=== PATIENT | female | born 1945 | race Caucasian/White ===

== ENCOUNTER 2018-06-16 08:20 | Emergency (ER) | payer MEDICARE, BC ==
[2018-06-16 08:33] VITALS: BP 134/86
[2018-06-16] MEDS ORDERED: Phenazopyridine 95 MG Tab PO ONE (08:44)
--- NOTE | 2018-06-16 08:44 | EDM.PDOC ---
ED HPI GENERAL MEDICAL PROBLEM - General Chief Complaint: Genitourinary Problem Stated Complaint: [id number] BLADDER INFECTION Time Seen by Provider: 06/16/18 08:35 Source of Information: Reports: Patient History Limitations: Reports: No Limitations - History of Present Illness INITIAL COMMENTS - FREE TEXT/NARRATIVE: Patient comes emergency department today with complaints of suprapubic pain pressure dysuria and urinary frequency. Over the past 3 days she has had increased urination as well as very painful urination with small amounts. She also complains of some generalized fever and chills but did not check her fever. Had some nausea yesterday but no vomiting. No flank pain. No weakness dizziness lightheadedness. She has had a good appetite. She did have one urinary tract infection earlier this year. He typically does not get them. She has not taken anything for her symptomology other than apple cider vinegar. Perineal Area Pain Score (Numeric/FACES): 10 - Related Data Allergies Allergy/AdvReac Type Severity Reaction Status Date / Time iopamidol [From Isovue-M] Allergy Mild Hives Verified 12/22/16 06:02 codeine Allergy unknown Verified 12/22/16 06:02 oxycodone Allergy unknown Verified 12/22/16 06:02 Home Meds: Home Meds Acetaminophen 1,000 mg PO Q6H PRN 12/19/16 [History] Aspirin/Calcium Carbonate/Mag [Aspirin Buffered 325 mg Tab] 325 mg PO BEDTIME [History] Calcium Carbonate [Tums] 1 - 2 tab PO ASDIRECTED PRN 12/19/16 [History] Calcium Carbonate/Vitamin D3 [Calcium 500 + Vit D 400] 1 tab PO BID 12/19/16 [ History] Cetirizine [ZyrTEC] 10 mg PO DAILY PRN 12/19/16 [History] Ergocalciferol (Vitamin D2) [Vitamin D] 400 unit PO DAILY 12/19/16 [History] Omeprazole 20 mg PO ASDIRECTED 12/19/16 [History] Pravastatin [Pravachol] 10 mg PO DAILY 12/19/16 [History] SUMAtriptan Succinate [Imitrex] 100 mg PO ASDIRECTED PRN 12/19/16 [History] Simethicone [Gas-X] 80 mg PO ASDIRECTED PRN 12/19/16 [History] Venlafaxine HCl [Venlafaxine ER] 150 mg PO ASDIRECTED 12/19/16 [History] Vitamin E 400 unit PO DAILY 12/19/16 [History] traZODone 50 mg PO BEDTIME PRN 12/19/16 [History] Past Medical History HEENT History: Reports: Hard of Hearing, Impaired Vision, Other (See Below) Other HEENT History: CHRONIC RHINITIS. 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: Musculoskeletal History: Reports: Osteoporosis, Other (See Below) Other Musculoskeletal History: DEGENERATIVE JOINT DISEASE Neurological History: Reports: Migraines, Other (See Below) Other Neuro History: INSOMNIA Psychiatric History: Reports: Anxiety, Depression Endocrine/Metabolic History: Reports: Osteoporosis Hematologic History: Reports: None Immunologic History: Reports: None Oncologic (Cancer) History: Reports: None Dermatologic History: Reports: None - Infectious Disease History Infectious Disease History: Reports: Chicken Pox, Measles, Mumps - Past Surgical History Female Surgical History: Reports: Breast Biopsy, Hysterectomy, Oophorectomy Neurological Surgical History: Reports: Lumbar Spine Musculoskeletal Surgical History: Reports: Arthroscopic Knee, Other (See Below) Social & Family History - Family History Oncologic: Reports: Breast - Caffeine Use Caffeine Use: Reports: None ED ROS GENERAL - Review of Systems Review Of Systems: ROS reveals no pertinent complaints other than HPI. ED EXAM, RENAL/ - Physical Exam Exam: See Below Exam Limited By: No Limitations General Appearance: Alert, WD/WN, No Apparent Distress Respiratory/Chest: No Respiratory Distress, Lungs Clear Cardiovascular: Normal Peripheral Pulses, Regular Rate, Rhythm GI/Abdominal: Normal Bowel Sounds, Soft, Tender (In the suprapubic region without guarding rebound tenderness. No CVA tenderness.) (Female) Exam: Deferred Back Exam: No: CVA Tenderness (L), CVA Tenderness (R) Extremities: Normal Inspection Neurological: Alert, Oriented Psychiatric: Normal Affect, Normal Mood Skin Exam: Warm, Dry, Intact, Normal Color Lymphatic: No Adenopathy Course - Vital Signs Last Recorded V/S: Last Vital Signs Temp 36.8 C 06/16/18 08:31 Pulse 75 06/16/18 08:31 Resp 16 06/16/18 08:31 BP 134/86 06/16/18 08:31 Pulse Ox 99 06/16/18 08:31 - Orders/Labs/Meds Orders: Active Orders 24 hr Category Date Time Status CULTURE URINE [RM] Stat Lab 06/16/18 08:55 Ordered Labs: Laboratory Tests 06/16/18 Range/Units 08:35 Urine Color Yellow (YELLOW) Urine Appearance Turbid (CLEAR) Urine pH 5.5 (5.0-9.0) Ur Specific [place] 1.015 (1.005-1.030) Urine Protein 100 H (NEGATIVE) Urine Glucose (UA) Negative (NEGATIVE) Urine Ketones Negative (NEGATIVE) Urine Occult Blood Moderate H (NEGATIVE) Urine Nitrite Negative (NEGATIVE) Urine Bilirubin Negative (NEGATIVE) Urine Urobilinogen 0.2 (0.2-1.0) mg/dL Ur Leukocyte Esterase Large H (NEGATIVE) Urine RBC 50-75 H /HPF Urine WBC >100 H (0-5/HPF) /HPF Ur Epithelial Cells Moderate H /HPF Amorphous Sediment Moderate H (0/HPF) /HPF Urine Bacteria Moderate H (0-FEW/HPF) /HPF Urine Mucus Few H /LPF Meds: Medications Discontinued Medications Generic Name Dose Route Start Last Admin Trade Name Freq PRN Reason Stop Dose Admin Cephalexin 500 mg 06/16/18 08:55 Keflex PO 06/16/18 08:56 ONETIME ONE Phenazopyridine HCl 95 mg 06/16/18 08:44 Urinary Pain Relief PO 06/16/18 08:45 ONETIME ONE - Re-Assessments/Exams Free Text/Narrative Re-Assessment/Exam: 06/16/18 08:48 Pyridium given by mouth. Cephalexin 500mg po 06/16/18 08:57 Departure - Departure Time of Disposition: 08:57 Disposition: Home, Self-Care 01 Clinical Impression: UTI, Urinary tract infectious disease - Discharge Information Instructions: Urinary Tract Infection, Adult Forms: ED Department Discharge Additional Instructions: Tylenol and/or ibuprofen as needed for pain and fever discomfort. Pyridium 1 tablet 3 times a day for 3 days. Cephalexin 1 tablet 4 times a day for the next 7 days. Prescriptions given to patient Increase fluid intake over the next couple of days. May try for the prevention of urinary tract infection Azo [id number]. Return to the emergency department if new or worsening symptoms. Follow-up with primary care provider the next 4-6 days if not improving sooner if worse.. - My Orders Last 24 Hours: My Active Orders 06/16/18 08:55 CULTURE URINE [RM] Stat - Assessment/Plan Last 24 Hours: My Active Orders 06/16/18 08:55 CULTURE URINE [RM] Stat Assessment:: UTI Plan: Tylenol and/or ibuprofen as needed for pain and fever discomfort. Pyridium 1 tablet 3 times a day for 3 days. Cephalexin 1 tablet 4 times a day for the next 7 days. Prescriptions given to patient Increase fluid intake over the next couple of days. May try for the prevention of urinary tract infection Azo [id number]. Return to the emergency department if new or worsening symptoms. Follow-up with primary care provider the next 4-6 days if not improving sooner if worse..
[2018-06-16] MEDS ORDERED: Cephalexin 500 MG Cap PO ONE (08:55)
== END 2018-06-16 09:09 | disposition home or self-care (01) ==
LOC: DL.ED 08:20
DX: N39.0 Urinary tract infection, site not specified (principal); Z88.5 Allergy status to narcotic agent; Z88.8 Allergy status to other drugs, medicaments and biological substances; Z79.899 Other long term (current) drug therapy
CPT/HCPCS: 81001; 87086; 87088; 87186; 99284; A9270

== ENCOUNTER 2019-05-04 19:11 | Emergency (ER) | payer MEDICARE, BC ==
[2019-05-04] MEDS ORDERED: Cyclobenzaprine 10 MG Tab PO ONE (19:12)
[2019-05-04 19:29] VITALS: BP 120/57
[2019-05-04] MEDS ORDERED: methylPREDNISolone Sodium Succinate 125 MG/2 ML SDV IM ONE (19:33)
--- NOTE | 2019-05-04 19:41 | EDM.PDOC ---
ED HPI GENERAL MEDICAL PROBLEM - General Chief Complaint: Back Pain or Injury Stated Complaint: BACK PAIN [id number] Time Seen by Provider: 05/04/19 19:28 Source of Information: Reports: Patient History Limitations: Reports: No Limitations - History of Present Illness INITIAL COMMENTS - FREE TEXT/NARRATIVE: This 73 yo female patient reports to the ED with lower back pain radiating to the right hip and thigh, but also radiating to the left hip. The patient reports her pain started about 2 weeks ago, but got much worse last night. The patient reports she does have a history of back surgery and has rods placed. The patient denies any falls or known injuries. The patient reports she took a Flexeril (10 mg) this morning with no relief. The patient also reports she attempted to do stretching exercises today. The patient reports she could do the exercises, but had increased pain getting down to do the exercises as well as getting up from doing the exercises. Duration: Day(s):, Week(s):, Constant, Getting Worse Location: Reports: Back Quality: Reports: Ache, Throbbing Severity: Severe Improves with: Reports: None Worsens with: Reports: None Context: Reports: Other Right Lower Back Pain Score (Numeric/FACES): 10 - Related Data Allergies Allergy/AdvReac Type Severity Reaction Status Date / Time iopamidol [From Isovue-M] Allergy Mild Hives Verified 12/22/16 06:02 codeine Allergy unknown Verified 05/04/19 19:19 oxycodone Allergy Anaphylactic Verified 05/04/19 19:19 Shock Home Meds: Home Meds Acetaminophen 1,000 mg PO Q6H PRN 12/19/16 [History] Calcium Carbonate [Tums] 1 - 2 tab PO ASDIRECTED PRN 12/19/16 [History] Calcium Carbonate/Vitamin D3 [Calcium 500 + Vit D 400] 1 tab PO BID 12/19/16 [ History] Cetirizine [ZyrTEC] 10 mg PO DAILY PRN 12/19/16 [History] Ergocalciferol (Vitamin D2) [Vitamin D] 400 unit PO DAILY 12/19/16 [History] Omeprazole 20 mg PO ASDIRECTED 12/19/16 [History] Pravastatin [Pravachol] 10 mg PO DAILY 12/19/16 [History] SUMAtriptan Succinate [Imitrex] 100 mg PO ASDIRECTED PRN 12/19/16 [History] Simethicone [Gas-X] 80 mg PO ASDIRECTED PRN 12/19/16 [History] Venlafaxine HCl [Venlafaxine ER] 150 mg PO ASDIRECTED 12/19/16 [History] Vitamin E 400 unit PO DAILY 12/19/16 [History] traZODone 50 mg PO BEDTIME PRN 12/19/16 [History] Aspirin [Halfprin] 81 mg PO DAILY 05/04/19 [History] Propranolol HCl 40 mg PO ASDIRECTED 05/04/19 [History] Past Medical History HEENT History: Reports: Hard of Hearing, Impaired Vision, Other (See Below) Other HEENT History: CHRONIC RHINITIS. 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: Musculoskeletal History: Reports: Osteoporosis, Other (See Below) Other Musculoskeletal History: DEGENERATIVE JOINT DISEASE Neurological History: Reports: Migraines, Other (See Below) Other Neuro History: INSOMNIA Psychiatric History: Reports: Anxiety, Depression Endocrine/Metabolic History: Reports: Osteoporosis Hematologic History: Reports: None Immunologic History: Reports: None Oncologic (Cancer) History: Reports: None Dermatologic History: Reports: None - Infectious Disease History Infectious Disease History: Reports: Chicken Pox, Measles, Mumps - Past Surgical History Female Surgical History: Reports: Breast Biopsy, Hysterectomy, Oophorectomy Neurological Surgical History: Reports: Lumbar Spine Musculoskeletal Surgical History: Reports: Arthroscopic Knee, Other (See Below) Social & Family History - Family History Oncologic: Reports: Breast - Caffeine Use Caffeine Use: Reports: None ED ROS GENERAL - Review of Systems Review Of Systems: ROS reveals no pertinent complaints other than HPI. ED EXAM,LOWER BACK PAIN/INJURY - Physical Exam Exam: See Below Exam Limited By: No Limitations General Appearance: Alert, WD/WN, Moderate Distress, Thin Eye Exam: Bilateral Eye: EOMI, Normal Inspection, PERRL Ears: Normal External Exam, Normal Canal, Hearing Grossly Normal, Normal TMs Nose: Normal Inspection, Normal Mucosa, No Blood Throat/Mouth: Normal Inspection, Normal Lips, Normal Teeth, Normal Gums, Normal Oropharynx, Normal Voice, No Airway Compromise Head: Atraumatic, Normocephalic Neck: Normal Inspection, Supple, Non-Tender, Full Range of Motion Respiratory/Chest: No Respiratory Distress, Lungs Clear, Normal Breath Sounds, No Accessory Muscle Use, Chest Non-Tender Cardiovascular: Normal Peripheral Pulses, Regular Rate, Rhythm, No Edema, No Gallop, No JVD, No Murmur, No Rub GI/Abdominal: Normal Bowel Sounds, Soft, Non-Tender, No Organomegaly, No Distention, No Abnormal Bruit, No Mass (Female) Exam: Deferred Rectal (Female) Exam: Deferred Back Exam: Decreased Range of Motion (due to pain), Muscle Spasm, Paraspinal Tenderness Extremities: Normal Inspection, Non-Tender, No Pedal Edema, Normal Capillary Refill, Limited Range of Motion (due to lower back pain) Neurological: Alert, Normal Mood/Affect, Normal Dorsiflexion, CN II-XII Intact, Normal Plantar Flexion, Normal Gait, Normal Reflexes, No Motor/Sensory Deficits , Oriented x 3 Psychiatric: Normal Affect, Normal Mood Skin Exam: Warm, Dry, Intact, Normal Color, No Rash Lymphatic: No Adenopathy Course - Vital Signs Last Recorded V/S: Last Vital Signs Temp 36.5 C 05/04/19 19:28 Pulse 59 L 05/04/19 19:28 Resp 18 05/04/19 19:28 BP 120/57 L 05/04/19 19:28 Pulse Ox 95 05/04/19 19:28 - Orders/Labs/Meds Orders: Active Orders 24 hr Category Date Time Status Orphenadrine [Norflex] Med 05/04/19 19:45 Ordered 60 mg IM Q12H Medication Orders Orphenadrine Citrate (Norflex) 60 mg IM Q12H [facility] Meds: Medications Generic Name Dose Route Start Last Admin Trade Name Freq PRN Reason Stop Dose Admin Orphenadrine Citrate 60 mg 05/04/19 19:45 Norflex IM Q12H JOSEY Discontinued Medications Generic Name Dose Route Start Last Admin Trade Name Freq PRN Reason Stop Dose Admin Methylprednisolone Sodium Succinate 125 mg 05/04/19 19:33 Solu-Medrol IM 05/04/19 19:34 ONETIME ONE Departure - Departure Time of Disposition: 19:40 Disposition: Home, Self-Care 01 Condition: Fair Clinical Impression: Sciatica Qualifiers: Laterality: bilateral Qualified Code(s): M54.31 - Sciatica, right side; M54.32 - Sciatica, left side - Discharge Information *PRESCRIPTION DRUG MONITORING PROGRAM REVIEWED*: Not Applicable *COPY OF PRESCRIPTION DRUG MONITORING REPORT IN PATIENT MAZIN: Not Applicable Instructions: Sciatica, [id number] Care Plan Goals: The patient was advised of the examination results during the visit. The patient was given an injection of Solumedrol (steroid) and Norflex (muscle relaxer) while in the ED. The patient was discharged with Flexeril (10 mg) #2 to take one every 6 hours as needed. The patient was discharged with scripts for Prednisone (20 mg) #10 to take 2 by mouth daily for 5 days and Flexeril (10 mg) #20 to take 1 by mouth every 6 hours as needed for pain. The patient may take Tylenol as directed for temporary symptom relief. If the patient has any additional symptoms or concerns, the patient should either return to the emergency department or visit his primary care facility. - My Orders Last 24 Hours: My Active Orders 05/04/19 19:45 Orphenadrine [Norflex] 60 mg IM Q12H - Assessment/Plan Last 24 Hours: My Active Orders 05/04/19 19:45 Orphenadrine [Norflex] 60 mg IM Q12H
[2019-05-04] MEDS ORDERED: Cyclobenzaprine 10 MG Tab ONE (19:45)
== END 2019-05-04 20:01 | disposition home or self-care (01) ==
LOC: DL.ED 19:11
DX: M54.31 Sciatica, right side (principal); M54.32 Sciatica, left side; F41.9 Anxiety disorder, unspecified; F32.9 Major depressive disorder, single episode, unspecified; E78.00 Pure hypercholesterolemia, unspecified; Z79.899 Other long term (current) drug therapy; Z88.6 Allergy status to analgesic agent; Z88.8 Allergy status to other drugs, medicaments and biological substances
CPT/HCPCS: 96372; 99282; A9270; J2360; J2930

== ENCOUNTER 2020-01-25 01:59 | Emergency (ER) | payer MEDICARE, BC ==
[2020-01-25 02:20] VITALS: BP 165/85; PULSE 95
--- NOTE | 2020-01-25 03:07 | EDM.PDOC ---
ED HPI GENERAL MEDICAL PROBLEM - General Chief Complaint: Headache Stated Complaint: MIGRAINE Time Seen by Provider: 01/25/20 02:55 Source of Information: Reports: Patient, RN, RN Notes Reviewed History Limitations: Reports: No Limitations - History of Present Illness INITIAL COMMENTS - FREE TEXT/NARRATIVE: patient presents to ER with complaint of migraine headache, which she rates pain of 10/10. patient states she has a history of headaches, but they have been getting worse recently. Patient states she had Botox injections 3 weeks ago by her neurologist in [place] [employer]. Patient states she had some pressure around the right eye earlier, and now has a bloodshot eye on the right. Patient admits to sensitivity to light and sound, nausea. 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 Headache Pain Score (Numeric/FACES): 10 - Related Data Allergies Allergy/AdvReac Type Severity Reaction Status Date / Time iopamidol [From Isovue-M] Allergy Mild Hives Verified 01/25/20 03:24 codeine Allergy unknown Verified 01/25/20 03:24 oxycodone Allergy Anaphylactic Verified 01/25/20 03:24 Shock Home Meds: Home Meds Acetaminophen 1,000 mg PO Q6H PRN 12/19/16 [History] Calcium Carbonate [Tums] 1 - 2 tab PO ASDIRECTED PRN 12/19/16 [History] Calcium Carbonate/Vitamin D3 [Calcium 500 + Vit D 400] 1 tab PO BID 12/19/16 [ History] Cetirizine [ZyrTEC] 10 mg PO DAILY PRN 12/19/16 [History] Ergocalciferol (Vitamin D2) [Vitamin D] 400 unit PO DAILY 12/19/16 [History] Omeprazole 20 mg PO ASDIRECTED 12/19/16 [History] Pravastatin [Pravachol] 10 mg PO DAILY 12/19/16 [History] SUMAtriptan Succinate [Imitrex] 100 mg PO ASDIRECTED PRN 12/19/16 [History] Simethicone [Gas-X] 80 mg PO ASDIRECTED PRN 12/19/16 [History] Venlafaxine HCl [Venlafaxine ER] 150 mg PO ASDIRECTED 12/19/16 [History] Vitamin E 400 unit PO DAILY 12/19/16 [History] traZODone 50 mg PO BEDTIME PRN 12/19/16 [History] Aspirin [Halfprin] 81 mg PO DAILY 05/04/19 [History] Propranolol HCl 40 mg PO ASDIRECTED 05/04/19 [History] Past Medical History HEENT History: Reports: Hard of Hearing, Impaired Vision, Other (See Below) Other HEENT History: CHRONIC RHINITIS. 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: Musculoskeletal History: Reports: Osteoporosis, Other (See Below) Other Musculoskeletal History: DEGENERATIVE JOINT DISEASE Neurological History: Reports: Migraines, Other (See Below) Other Neuro History: INSOMNIA Psychiatric History: Reports: Anxiety, Depression Endocrine/Metabolic History: Reports: Osteoporosis Hematologic History: Reports: None Immunologic History: Reports: None Oncologic (Cancer) History: Reports: None Dermatologic History: Reports: None - Infectious Disease History Infectious Disease History: Reports: Chicken Pox, Measles, Mumps - Past Surgical History Female Surgical History: Reports: Breast Biopsy, Hysterectomy, Oophorectomy Neurological Surgical History: Reports: Lumbar Spine Musculoskeletal Surgical History: Reports: Arthroscopic Knee, Other (See Below) Social & Family History - Family History Family Medical History: Noncontributory Oncologic: Reports: Breast - Tobacco Use Smoking Status *Q: Never Smoker Second Hand Smoke Exposure: No - Caffeine Use Caffeine Use: Reports: Coffee - Alcohol Use Date of Last Drink: 01/24/20 - Recreational Drug Use Recreational Drug Use: No ED ROS GENERAL - Review of Systems Review Of Systems: Comprehensive ROS is negative, except as noted in HPI. - Physical Exam Exam: See Below Exam Limited By: No Limitations General Appearance: Alert, WD/WN, Moderate Distress Eye Exam: Right Eye: Conjunctival Injection, Left Eye: Normal Inspection, Bilateral Eye: EOMI Ears: Normal External Exam, Hearing Grossly Normal Nose: Normal Inspection Throat/Mouth: Normal Inspection, Normal Voice, No Airway Compromise Head Exam: Atraumatic, Normocephalic Neck: Normal Inspection, Supple, Non-Tender, Full Range of Motion Respiratory/Chest: No Respiratory Distress, Lungs Clear, Normal Breath Sounds, No Accessory Muscle Use, Chest Non-Tender Cardiovascular: Normal Peripheral Pulses, Regular Rate, Rhythm, No Edema, No Gallop, No JVD, No Murmur, No Rub GI/Abdominal: Normal Bowel Sounds, Soft, Non-Tender (Female) Exam: Deferred Rectal (Female) Exam: Deferred Neuro Exam (Abbreviated): Alert, Oriented, CN II-XII Intact, Normal Cognition, Normal Gait Back Exam: Normal Inspection, Full Range of Motion Extremities: Normal Inspection, Normal Range of Motion, Non-Tender, No Pedal Edema, Normal Capillary Refill Psychiatric: Normal Mood, Flat Affect Skin Exam: Warm, Dry, Intact, Normal Color, No Rash Course - Vital Signs Last Recorded V/S: Last Vital Signs Temp 97.5 F 01/25/20 02:17 Pulse 95 01/25/20 02:17 Resp 19 01/25/20 02:17 BP 165/85 H 01/25/20 02:17 Pulse Ox 95 01/25/20 02:17 - Orders/Labs/Meds Orders: Active Orders 24 hr Category Date Time Status Peripheral IV Care [RC] . DIRECTED Care 01/25/20 03:10 Active Sodium Chloride 0.9% [Saline Flush] Med 01/25/20 03:10 Active 10 ml FLUSH ASDIRECTED PRN Peripheral IV Insertion Adult [OM.PC] Stat Oth 01/25/20 03:10 Ordered Medication Orders Sodium Chloride (Saline Flush) 10 ml FLUSH ASDIRECTED PRN PRN Reason: Keep Vein Open Last Admin: 01/25/20 03:25 Dose: 10 ml Meds: Medications Generic Name Dose Route Start Last Admin Trade Name Freq PRN Reason Stop Dose Admin Sodium Chloride 10 ml 01/25/20 03:10 01/25/20 03:25 Saline Flush FLUSH 10 ml ASDIRECTED PRN Administration Keep Vein Open Discontinued Medications Generic Name Dose Route Start Last Admin Trade Name Freq PRN Reason Stop Dose Admin Diphenhydramine HCl 25 mg 01/25/20 03:10 01/25/20 03:26 Benadryl IVPUSH 01/25/20 03:11 25 mg ONETIME ONE Administration Sodium Chloride 1,000 mls @ 999 mls/hr 01/25/20 03:10 01/25/20 03:30 Normal Saline IV 01/25/20 04:10 999 mls/hr .BOLUS ONE Administration Ketorolac Tromethamine 30 mg 01/25/20 03:10 01/25/20 03:28 Toradol IVPUSH 01/25/20 03:11 30 mg ONETIME ONE Administration Ondansetron HCl 4 mg 01/25/20 03:10 01/25/20 03:24 Zofran IV 01/25/20 03:11 4 mg ONETIME ONE Administration - Re-Assessments/Exams Free Text/Narrative Re-Assessment/Exam: 01/25/20 04:36 Patient states much improvement after fluids and medications. Departure - Departure Time of Disposition: 04:36 Disposition: Home, Self-Care 01 Condition: Fair Clinical Impression: Migraine - Discharge Information *PRESCRIPTION DRUG MONITORING PROGRAM REVIEWED*: No *COPY OF PRESCRIPTION DRUG MONITORING REPORT IN PATIENT MAZIN: No Instructions: Recurrent Migraine Headache, [id number] Forms: ED Department Discharge Additional Instructions: Follow up with your primary care facility and your Neurologist if symptoms persist Drink plenty of water Continue to use medication regimen for headaches as previously prescribed Sepsis Event Note - Evaluation Sepsis Screening Result: No Definite Risk - Focused Exam Vital Signs: Vital Signs Temp Pulse Resp BP Pulse Ox 01/25/20 02:17 97.5 F 95 19 165/85 H 95 Date Exam was Performed: 01/25/20 Time Exam was Performed: 04:36 - My Orders Last 24 Hours: My Active Orders 01/25/20 03:10 Peripheral IV Care [RC] . DIRECTED Sodium Chloride 0.9% [Saline Flush] 10 ml FLUSH ASDIRECTED PRN Peripheral IV Insertion Adult [OM.PC] Stat - Assessment/Plan Last 24 Hours: My Active Orders 01/25/20 03:10 Peripheral IV Care [RC] . DIRECTED Sodium Chloride 0.9% [Saline Flush] 10 ml FLUSH ASDIRECTED PRN Peripheral IV Insertion Adult [OM.PC] Stat
[2020-01-25] MEDS ORDERED: Ketorolac 30 MG/ML SDV IVPUSH ONE (03:10)
[2020-01-25] MEDS ORDERED: Sodium Chloride 0.9% 10 ML Syringe FLUSH PRN (03:10)
[2020-01-25] MEDS ORDERED: Ondansetron 4 MG/2 ML SDV IV ONE (03:10)
[2020-01-25] MEDS ORDERED: Sodium Chloride 0.9% 1,000 ML IV ONE (03:10)
[2020-01-25] MEDS ORDERED: diphenhydrAMINE 50 MG/ML SDV IVPUSH ONE (03:10)
== END 2020-01-25 04:50 | disposition home or self-care (01) ==
LOC: DL.ED 01:59
DX: G43.909 Migraine, unspecified, not intractable, without status migrainosus (principal); Z88.5 Allergy status to narcotic agent; Z88.8 Allergy status to other drugs, medicaments and biological substances; Z79.899 Other long term (current) drug therapy; Z79.82 Long term (current) use of aspirin
CPT/HCPCS: 96361; 96374; 96375; 99283; J1200; J1885; J2405; J7030

== ENCOUNTER 2020-11-19 15:47 | Emergency (ER) | payer MEDICARE, BC ==
[2020-11-19 15:57] VITALS: BP 140/77; PULSE 108
--- NOTE | 2020-11-19 16:06 | EDM.PDOC ---
ED HPI GENERAL MEDICAL PROBLEM - General Chief Complaint: Upper Extremity Injury/Pain Stated Complaint: MIGHT HAVE BROKEN RIGHT WRIST Time Seen by Provider: 11/19/20 16:05 Source of Information: Reports: Patient, RN History Limitations: Reports: No Limitations - History of Present Illness INITIAL COMMENTS - FREE TEXT/NARRATIVE: 75 year-old female who present to the ER with complaints of fall and landing on her right side. She states she was climbing the stairs carrying gifts and slipped on the third stairs. She landed on her right side and hit her right wrist on the stairs. She denies hitting her head or loss of consciousness. Pain is reported on the right wrist and she was unable to use her right wrist afterwards. Neurovascular status intact. Denies any other concerns at this time. Onset: Today (20 minutes prior to ER visit), Sudden Location: Reports: Upper Extremity, Right Quality: Reports: Ache, Throbbing Severity: Moderate Improves with: Reports: Cold Therapy, Rest Worsens with: Reports: Movement Associated Symptoms: Reports: No Other Symptoms Right Arm Pain Score (Numeric/FACES): 10 - Related Data Allergies Allergy/AdvReac Type Severity Reaction Status Date / Time iopamidol [From Isovue-M] Allergy Mild Hives Verified 11/19/20 15:53 codeine Allergy unknown Verified 11/19/20 15:53 oxycodone Allergy Anaphylactic Verified 11/19/20 15:53 Shock Home Meds: Home Meds Acetaminophen 1,000 mg PO Q6H PRN 12/19/16 [History] Calcium Carbonate [Tums] 1 - 2 tab PO ASDIRECTED PRN 12/19/16 [History] Calcium Carbonate/Vitamin D3 [Calcium 500 + Vit D 400] 1 tab PO BID 12/19/16 [History] Cetirizine [ZyrTEC] 10 mg PO DAILY PRN 12/19/16 [History] Ergocalciferol (Vitamin D2) [Vitamin D] 400 unit PO DAILY 12/19/16 [History] Omeprazole 20 mg PO ASDIRECTED 12/19/16 [History] Pravastatin [Pravachol] 10 mg PO DAILY 12/19/16 [History] SUMAtriptan succinate [Imitrex] 100 mg PO ASDIRECTED PRN 12/19/16 [History] Simethicone [Gas-X] 80 mg PO ASDIRECTED PRN 12/19/16 [History] Venlafaxine HCl [Venlafaxine ER] 150 mg PO ASDIRECTED 12/19/16 [History] Vitamin E 400 unit PO DAILY 12/19/16 [History] traZODone 50 mg PO BEDTIME PRN 12/19/16 [History] Aspirin [Halfprin] 81 mg PO DAILY 05/04/19 [History] Propranolol HCl 40 mg PO ASDIRECTED 05/04/19 [History] Past Medical History HEENT History: Reports: Hard of Hearing, Impaired Vision, Other (See Below) Other HEENT History: CHRONIC RHINITIS. 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: Musculoskeletal History: Reports: Osteoporosis, Other (See Below) Other Musculoskeletal History: DEGENERATIVE JOINT DISEASE Neurological History: Reports: Migraines, Other (See Below) Other Neuro History: INSOMNIA Psychiatric History: Reports: Anxiety, Depression Endocrine/Metabolic History: Reports: Osteoporosis Hematologic History: Reports: None Immunologic History: Reports: None Oncologic (Cancer) History: Reports: None Dermatologic History: Reports: None - Infectious Disease History Infectious Disease History: Reports: Chicken Pox, Measles, Mumps - Past Surgical History Female Surgical History: Reports: Breast Biopsy, Hysterectomy, Oophorectomy Neurological Surgical History: Reports: Lumbar Spine Musculoskeletal Surgical History: Reports: Arthroscopic Knee, Other (See Below) Social & Family History - Family History Family Medical History: No Pertinent Family History Oncologic: Reports: Breast - Caffeine Use Caffeine Use: Reports: Coffee Review of Systems - Review of Systems Review Of Systems: Comprehensive ROS is negative, except as noted in HPI. ED EXAM, GENERAL - Physical Exam Exam: See Below Exam Limited By: No Limitations General Appearance: Alert, Moderate Distress Eye Exam: Bilateral Eye: EOMI, Normal Inspection, PERRL Ears: Normal External Exam, Normal Canal, Hearing Grossly Normal, Normal TMs Nose: Normal Inspection, Normal Mucosa, No Blood Throat/Mouth: Normal Inspection, Normal Lips, Normal Gums, Normal Oropharynx, Normal Voice, No Airway Compromise Head: Atraumatic, Normocephalic Neck: Normal Inspection, Supple, Non-Tender, Full Range of Motion Respiratory/Chest: No Respiratory Distress, Lungs Clear, Normal Breath Sounds, No Accessory Muscle Use, Chest Non-Tender Cardiovascular: Normal Peripheral Pulses, Regular Rate, Rhythm, No Edema Peripheral Pulses: 3+: Dorsalis Pedis (L), Dorsalis Pedis (R) GI/Abdominal: Normal Bowel Sounds, Soft, Non-Tender, No Organomegaly (Female) Exam: Deferred Rectal (Female) Exam: Deferred Back Exam: Normal Inspection Extremities: Normal Inspection, Normal Range of Motion, Non-Tender, No Pedal Edema, Normal Capillary Refill, Joint Swelling (and deformity noted on the dorsal aspect of the right wrist.), Limited Range of Motion (due to pain) Neurological: Alert, Oriented, CN II-XII Intact, Normal Cognition Psychiatric: Anxious Skin Exam: Warm, Intact Lymphatic: No Adenopathy Course - Vital Signs Last Recorded V/S: Last Vital Signs Temp 96.4 F L 11/19/20 15:53 Pulse 108 H 11/19/20 15:53 Resp 18 11/19/20 15:53 BP 140/77 11/19/20 15:53 Pulse Ox 96 11/19/20 15:53 - Re-Assessments/Exams Free Text/Narrative Re-Assessment/Exam: 75 year-old female who present to the ER with right wrist pain. Xray revealed an impacted fracture of the distal radius. Consulted at [facility] once who recommended dave bang with reduction. Patient will follow up with Dr. Duncan November 24, 2020. Patient in agreement to plan. Sugar tong applied. Patient tolerated procedure. Departure - Departure Time of Disposition: 17:36 Disposition: Home, Self-Care 01 Condition: Fair Clinical Impression: Closed fracture of radius Qualifiers: Encounter type: initial encounter Radius location: distal Fracture morphology: unspecified fracture morphology Laterality: right Qualified Code(s): S52.501A - Unspecified fracture of the lower end of right radius, initial encounter for closed fracture Fall Qualifiers: Encounter type: initial encounter Qualified Code(s): W19.XXXA - Unspecified fall, initial encounter - Discharge Information Instructions: Closed Reduction for Wrist or Forearm, Care After Additional Instructions: Encouraged applying ice 20 minutes every hours while awake. Take Tylenol 650 mg every 6 hours as needed for pain. Follow up with Dr. Duncan as scheduled. Sepsis Event Note (ED) - Evaluation Sepsis Screening Result: No Definite Risk - Focused Exam Vital Signs: Vital Signs Temp Pulse Resp BP Pulse Ox 11/19/20 15:53 96.4 F L 108 H 18 140/77 96
--- NOTE | 2020-11-19 16:17 | CR ---
PROCEDURE INFORMATION: Exam: XR Right Forearm Exam date and time: 11/19/2020 4:06 PM Age: 75 years old Clinical indication: Other: Fall/deformity TECHNIQUE: Imaging protocol: XR Right forearm. Views: 2 views. COMPARISON: No relevant prior studies available. FINDINGS: Bones/joints: Impacted fracture of the distal radius with overlying soft tissue swelling. Slight apex volar angulation of the fracture fragments present. Soft tissues: See "Bones/joints" finding. IMPRESSION: Impacted fracture of the distal radius with overlying soft tissue swelling.
--- NOTE | 2020-11-19 17:45 | CR ---
PROCEDURE INFORMATION: Exam: XR Right Wrist Exam date and time: 11/19/2020 5:10 PM Age: 75 years old Clinical indication: Other: Post red; Additional info: Post reduction TECHNIQUE: Imaging protocol: XR Right wrist. Views: 1 or 2 views. COMPARISON: No relevant prior studies available. FINDINGS: Bones/joints: Comminuted intra-articular fracture of the distal radius is present with apex volar angulation. There is chondrocalcinosis. Degenerative changes of the wrist. Soft tissues: Soft tissue swelling is present. IMPRESSION: 1. Comminuted intra-articular fracture of the distal radius is present with apex volar angulation. 2. Soft tissue swelling is present. 3. Degenerative changes of the wrist.
== END 2020-11-19 17:48 | disposition home or self-care (01) ==
LOC: DL.ED 15:47
DX: S52.571A Other intraarticular fracture of lower end of right radius, initial encounter for closed fracture (principal); E78.00 Pure hypercholesterolemia, unspecified; F41.9 Anxiety disorder, unspecified; F32.9 Major depressive disorder, single episode, unspecified; Z79.899 Other long term (current) drug therapy; Z88.5 Allergy status to narcotic agent; Z88.8 Allergy status to other drugs, medicaments and biological substances; W10.9XXA Fall (on) (from) unspecified stairs and steps, initial encounter
CPT/HCPCS: 29125; 73090-RT; 73100-RT; 99283-25

== ENCOUNTER 2020-11-21 09:09 | Emergency (ER) | payer MEDICARE, BC | END 2020-11-21 09:32 | LOC: DL.ED 09:09 | DX: Z53.8 Procedure and treatment not carried out for other reasons (principal) ==

== ENCOUNTER 2020-12-02 22:58 | Emergency (ER) | payer MEDICARE, BC ==
[2020-12-02] MEDS ORDERED: Metoclopramide 10 MG Tab PO ONE (22:59)
[2020-12-02] MEDS ORDERED: Sodium Chloride 0.9% 1,000 ML IV ONE (23:07)
[2020-12-02] MEDS ORDERED: Ondansetron 4 MG/2 ML SDV IVPUSH ONE (23:25)
--- NOTE | 2020-12-02 23:35 | EDM.PDOC ---
ED HPI GENERAL MEDICAL PROBLEM - General Chief Complaint: Gastrointestinal Problem Stated Complaint: VOMITING Time Seen by Provider: 12/02/20 23:30 Source of Information: Reports: Patient, RN History Limitations: Reports: No Limitations - History of Present Illness INITIAL COMMENTS - FREE TEXT/NARRATIVE: ED with c/o severe nausea and vomiting since 2 pm today. Suregery today on right wrist. Nauseated prior to leaving [place]. [place] after. Unable to keep anything down, feeling weak tonight. Unsure what medications she received in [place]. Tried Zofran around 2 today and did not help. No fever chills or cough. No nausea or symptoms prior to surgery. - Related Data Allergies Allergy/AdvReac Type Severity Reaction Status Date / Time iopamidol [From Isovue-M] Allergy Mild Hives Verified 11/19/20 15:53 codeine Allergy unknown Verified 11/19/20 15:53 oxycodone Allergy Anaphylactic Verified 11/19/20 15:53 Shock Home Meds: Home Meds Acetaminophen 1,000 mg PO Q6H PRN 12/19/16 [History] Calcium Carbonate [Tums] 1 - 2 tab PO ASDIRECTED PRN 12/19/16 [History] Calcium Carbonate/Vitamin D3 [Calcium 500 + Vit D 400] 1 tab PO BID 12/19/16 [History] Cetirizine [ZyrTEC] 10 mg PO DAILY PRN 12/19/16 [History] Ergocalciferol (Vitamin D2) [Vitamin D] 400 unit PO DAILY 12/19/16 [History] Omeprazole 20 mg PO ASDIRECTED 12/19/16 [History] Pravastatin [Pravachol] 10 mg PO DAILY 12/19/16 [History] SUMAtriptan succinate [Imitrex] 100 mg PO ASDIRECTED PRN 12/19/16 [History] Simethicone [Gas-X] 80 mg PO ASDIRECTED PRN 12/19/16 [History] Venlafaxine HCl [Venlafaxine ER] 150 mg PO ASDIRECTED 12/19/16 [History] Vitamin E 400 unit PO DAILY 12/19/16 [History] traZODone 50 mg PO BEDTIME PRN 12/19/16 [History] Aspirin [Halfprin] 81 mg PO DAILY 05/04/19 [History] Propranolol HCl 40 mg PO ASDIRECTED 05/04/19 [History] Past Medical History HEENT History: Reports: Hard of Hearing, Impaired Vision, Other (See Below) Other HEENT History: CHRONIC RHINITIS. 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: Musculoskeletal History: Reports: Osteoporosis, Other (See Below) Other Musculoskeletal History: DEGENERATIVE JOINT DISEASE Neurological History: Reports: Migraines, Other (See Below) Other Neuro History: INSOMNIA Psychiatric History: Reports: Anxiety, Depression Endocrine/Metabolic History: Reports: Osteoporosis Hematologic History: Reports: None Immunologic History: Reports: None Oncologic (Cancer) History: Reports: None Dermatologic History: Reports: None - Infectious Disease History Infectious Disease History: Reports: Chicken Pox, Measles, Mumps - Past Surgical History HEENT Surgical History: Reports: None Cardiovascular Surgical History: Reports: None Respiratory Surgical History: Reports: None GI Surgical History: Reports: Colonoscopy, EGD Female Surgical History: Reports: Breast Biopsy, Hysterectomy, Oophorectomy Neurological Surgical History: Reports: Lumbar Spine Musculoskeletal Surgical History: Reports: Arthroscopic Knee, Other (See Below) Other Musculoskeletal Surgeries/Procedures:: Four back surgeries Oncologic Surgical History: Reports: None Social & Family History - Family History Family Medical History: No Pertinent Family History Oncologic: Reports: Breast - Tobacco Use Tobacco Use Status *Q: Unknown Ever Used Tobacco Second Hand Smoke Exposure: No - Caffeine Use Caffeine Use: Reports: None - Recreational Drug Use Recreational Drug Use: No ED ROS GENERAL - Review of Systems Review Of Systems: Comprehensive ROS is negative, except as noted in HPI. ED EXAM, GI/ABD - Physical Exam Exam: See Below Exam Limited By: No Limitations General Appearance: Alert, Moderate Distress Ears: Hearing Loss Throat/Mouth: Normal Voice Head: Atraumatic, Normocephalic Neck: Normal Inspection Respiratory/Chest: No Respiratory Distress, Lungs Clear, Normal Breath Sounds Cardiovascular: Normal Peripheral Pulses, Regular Rate, Rhythm GI/Abdominal Exam: Normal Bowel Sounds, Soft Extremities: Joint Swelling (right upper extremity short arm splint. Hand swollen.), Arm Pain Neurological: Alert, Oriented Psychiatric: Normal Affect, Flat Affect Skin Exam: Warm, Dry Course - Vital Signs Last Recorded V/S: Last Vital Signs Temp 98.5 F 12/03/20 01:25 Pulse 76 12/03/20 01:25 Resp 18 12/03/20 01:25 BP 129/76 12/03/20 01:25 Pulse Ox 98 12/03/20 01:25 - Orders/Labs/Meds Orders: Active Orders 24 hr Category Date Time Status Isolation [COMM] Routine Oth 12/02/20 23:10 Active Labs: Laboratory Tests 12/02/20 12/02/20 12/02/20 Range/Units 23:16 23:16 23:16 WBC 8.9 (5.0-10.0) 10^3/uL RBC 4.02 L (4.2-5.4) 10^6/uL Hgb 12.4 (12.0-16.0) g/dL Hct 36.7 L (37.0-47.0) % MCV 91.3 (80-100) fL MCH 30.8 (27.0-34.0) pg MCHC 33.8 (33.0-35.0) g/dL Plt Count 284 (150-450) 10^3/uL Neut % (Auto) 88.0 H (42.2-75.2) % Lymph % (Auto) 7.2 L (20.5-50.1) % [place] % (Auto) 4.6 (2-8) % Eos % (Auto) 0.0 L (1.0-3.0) % Baso % (Auto) 0.2 (0.0-1.0) % Sodium 140 (136-145) mmol/L Potassium 3.9 (3.5-5.1) mmol/L Chloride 104 (98-107) mmol/L Carbon Dioxide 27 (21-32) mmol/L Anion Gap 12.9 (7-13) mEq/L BUN 22 H (7-18) mg/dL Creatinine 0.78 (0.55-1.02) mg/dL Est Cr Clr Drug Dosing 51.55 mL/min Estimated GFR (MDRD) > 60 BUN/Creatinine Ratio 28.2 (No establ ref range) Glucose 145 H (74-99) mg/dL Lactic Acid 1.5 (0.4-2.0) mmol/L Calcium 8.7 (8.5-10.1) mg/dL Total Bilirubin 0.4 (0.2-1.0) mg/dL AST 18 (15-37) U/L ALT 23 (14-59) U/L Alkaline Phosphatase 118 H (46-116) U/L Troponin I < 0.017 (0.000-0.056) ng/mL Total Protein 6.5 (6.4-8.2) g/dL Albumin 3.9 (3.4-5.0) g/dL Globulin 2.6 Albumin/Globulin Ratio 1.5 Amylase 61 (25-115) U/L Lipase 94 (73-393) U/L SARS-CoV-2 RNA (AL) (NEGATIVE) SARS-CoV-2 Ag (Rapid) Cancelled 12/03/20 Range/Units 00:10 WBC (5.0-10.0) 10^3/uL RBC (4.2-5.4) 10^6/uL Hgb (12.0-16.0) g/dL Hct (37.0-47.0) % MCV (80-100) fL MCH (27.0-34.0) pg MCHC (33.0-35.0) g/dL Plt Count (150-450) 10^3/uL Neut % (Auto) (42.2-75.2) % Lymph % (Auto) (20.5-50.1) % [place] % (Auto) (2-8) % Eos % (Auto) (1.0-3.0) % Baso % (Auto) (0.0-1.0) % Sodium (136-145) mmol/L Potassium (3.5-5.1) mmol/L Chloride (98-107) mmol/L Carbon Dioxide (21-32) mmol/L Anion Gap (7-13) mEq/L BUN (7-18) mg/dL Creatinine (0.55-1.02) mg/dL Est Cr Clr Drug Dosing mL/min Estimated GFR (MDRD) BUN/Creatinine Ratio (No establ ref range) Glucose (74-99) mg/dL Lactic Acid (0.4-2.0) mmol/L Calcium (8.5-10.1) mg/dL Total Bilirubin (0.2-1.0) mg/dL AST (15-37) U/L ALT (14-59) U/L Alkaline Phosphatase (46-116) U/L Troponin I (0.000-0.056) ng/mL Total Protein (6.4-8.2) g/dL Albumin (3.4-5.0) g/dL Globulin Albumin/Globulin Ratio Amylase (25-115) U/L Lipase (73-393) U/L SARS-CoV-2 RNA (AL) Negative (NEGATIVE) SARS-CoV-2 Ag (Rapid) Meds: Medications Discontinued Medications Generic Name Dose Route Start Last Admin Trade Name Freq PRN Reason Stop Dose Admin Sodium Chloride 1,000 mls @ 250 mls/hr 12/02/20 23:07 12/02/20 23:30 Normal Saline IV 12/03/20 03:06 250 mls/hr .BOLUS ONE Administration Ketorolac Tromethamine 30 mg 12/03/20 01:18 12/03/20 01:23 Toradol IVPUSH 12/03/20 01:19 30 mg ONETIME ONE Administration Metoclopramide HCl 10 mg 12/03/20 00:17 12/03/20 00:25 Reglan IVPUSH 12/03/20 00:18 10 mg ONETIME ONE Administration Metoclopramide HCl Confirm 12/03/20 01:58 Reglan Administered 12/03/20 01:59 Dose 20 mg .ROUTE .STK-MED ONE Ondansetron HCl 4 mg 12/02/20 23:25 12/02/20 23:32 Zofran IVPUSH 12/02/20 23:26 4 mg ONETIME ONE Administration - Re-Assessments/Exams Free Text/Narrative Re-Assessment/Exam: Minimal improvement in nausea with Zofran. Improved with Reglan. Toradol for pain. States feeling better, able to rest. Requesting discharge. Departure - Departure Time of Disposition: 02:10 Disposition: Home, Self-Care 01 Condition: Good Clinical Impression: S/P ORIF (open reduction internal fixation) fracture Adverse effects of medication Qualifiers: Encounter type: initial encounter Qualified Code(s): T50.905A - Adverse effect of unspecified drugs, medicaments and biological substances, initial encounter Vomiting Qualifiers: Vomiting type: bilious vomiting Nausea presence: with nausea Qualified Code(s): R11.14 - Bilious vomiting - Discharge Information *PRESCRIPTION DRUG MONITORING PROGRAM REVIEWED*: No *COPY OF PRESCRIPTION DRUG MONITORING REPORT IN PATIENT MAZIN: No Instructions: Nausea and Vomiting, Adult, [id number] Referrals: PCP,None [Primary Care Provider] - Forms: ED Department Discharge Additional Instructions: DO NOT take oxycodone tylenol 2 tablets alternating with Ibuprofen 400mg every 4-6 hours as needed for wrist pain reglan 10mg every 6 hours s needed for nausea/ vomiting tramadol 50mg every 8 hours as needed for severe pain follow up in clinic if poor pain control Sepsis Event Note (ED) - Evaluation Sepsis Screening Result: No Definite Risk - Focused Exam Vital Signs: Vital Signs Temp Pulse Resp BP Pulse Ox 12/03/20 01:25 98.5 F 76 18 129/76 98 12/02/20 23:08 97.5 F 103 H 19 124/81 100 - My Orders Last 24 Hours: My Active Orders 12/02/20 23:10 Isolation [COMM] Routine - Assessment/Plan Last 24 Hours: My Active Orders 12/02/20 23:10 Isolation [COMM] Routine
[2020-12-02 23:47] LABS: ANION GAP 12.9 mEq/L (7-13); CHLORIDE,CL 104 mmol/L (98-107); SODIUM,NA 140 mmol/L (136-145)
[2020-12-03] MEDS ORDERED: Metoclopramide 10 MG/2 ML SDV IVPUSH ONE (00:17)
[2020-12-03] MEDS ORDERED: Ketorolac 30 MG/ML SDV IVPUSH ONE (01:18)
[2020-12-03 01:26] VITALS: BP 129/76; PULSE 76
[2020-12-03] MEDS ORDERED: Metoclopramide 10 MG Tab ONE (01:58)
== END 2020-12-03 02:13 | disposition home or self-care (01) ==
LOC: DL.ED 22:58
DX: R11.14 Bilious vomiting (principal); E78.00 Pure hypercholesterolemia, unspecified; F41.9 Anxiety disorder, unspecified; F32.9 Major depressive disorder, single episode, unspecified; Z20.822 Contact with and (suspected) exposure to COVID-19; Z98.890 Other specified postprocedural states; Z88.5 Allergy status to narcotic agent; Z88.8 Allergy status to other drugs, medicaments and biological substances; Z79.899 Other long term (current) drug therapy; Z91.041 Radiographic dye allergy status; T50.905A Adverse effect of unspecified drugs, medicaments and biological substances, initial encounter
CPT/HCPCS: 36415; 80053; 82150; 83605; 83690; 84484; 85025; 87804; 93005; 96374; 96375; 99283; 99284; A9270; J1885; J2405; J2765; J7030; U0002; 87426

== ENCOUNTER 2020-12-24 22:07 | Emergency (ER) | payer MEDICARE, BC ==
[2020-12-24 23:27] LABS: ANION GAP 15.2 mEq/L (7-13)
[2020-12-24 23:36] LABS: PTT,PARTIAL THROMBOPLSTIN TIME 20.1 SEC (22.0-34.0)
[2020-12-25 00:06] LABS: CORONAVIRUS COVID-19 NAA NEGATIVE (NEGATIVE)
--- NOTE | 2020-12-25 01:35 | EDM.PDOC ---
ED HPI GENERAL MEDICAL PROBLEM - General Chief Complaint: Abdominal Pain Stated Complaint: SEVERE CRAMPS, BLOOD STOOL, CHILLS, LOW FEVER Time Seen by Provider: 12/25/20 01:32 Source of Information: Reports: Patient History Limitations: Reports: No Limitations - History of Present Illness INITIAL COMMENTS - FREE TEXT/NARRATIVE: states sudden onset of low abd pain with nausea but no vomiting or diarrhoea. started when a insurance man came around to discussed her insurance. but now feeling better somewhat and no pain. denies dysuria. Lower Abdomen Pain Score (Numeric/FACES): 0 - Related Data Allergies Allergy/AdvReac Type Severity Reaction Status Date / Time iopamidol [From Isovue-M] Allergy Mild Hives Verified 12/24/20 22:29 codeine Allergy unknown Verified 12/24/20 22:29 oxycodone Allergy Anaphylactic Verified 12/24/20 22:29 Shock Home Meds: Home Meds Acetaminophen 1,000 mg PO Q6H PRN 12/19/16 [History] Calcium Carbonate/Vitamin D3 [Calcium 500 + Vit D 400] 1 tab PO BID 12/19/16 [History] Cetirizine [ZyrTEC] 10 mg PO DAILY PRN 12/19/16 [History] Ergocalciferol (Vitamin D2) [Vitamin D] 400 unit PO DAILY 12/19/16 [History] Pravastatin [Pravachol] 10 mg PO DAILY 12/19/16 [History] SUMAtriptan succinate [Imitrex] 100 mg PO ASDIRECTED PRN 12/19/16 [History] Venlafaxine HCl [Venlafaxine ER] 150 mg PO ASDIRECTED 12/19/16 [History] Vitamin E 400 unit PO DAILY 12/19/16 [History] traZODone 50 mg PO BEDTIME PRN 12/19/16 [History] Aspirin [Halfprin] 81 mg PO DAILY 05/04/19 [History] Past Medical History HEENT History: Reports: Hard of Hearing, Impaired Vision, Other (See Below) Other HEENT History: CHRONIC RHINITIS. WEARS CORRECTIVE LENS Cardiovascular History: Reports: High Cholesterol Respiratory History: Reports: None, Other (See Below) Other Respiratory History: Being tested for sleep apnea Gastrointestinal History: Reports: None, GERD Genitourinary History: Reports: None [employer] WORK[employer] History: Reports: Musculoskeletal History: Reports: Osteoporosis, Other (See Below) Other Musculoskeletal History: DEGENERATIVE JOINT DISEASE Neurological History: Reports: Migraines, Other (See Below) Other Neuro History: INSOMNIA Psychiatric History: Reports: Anxiety, Depression Endocrine/Metabolic History: Reports: Osteoporosis Hematologic History: Reports: None Immunologic History: Reports: None Oncologic (Cancer) History: Reports: None Dermatologic History: Reports: None - Infectious Disease History Infectious Disease History: Reports: Chicken Pox, Measles, Mumps - Past Surgical History HEENT Surgical History: Reports: None Cardiovascular Surgical History: Reports: None Respiratory Surgical History: Reports: None GI Surgical History: Reports: Colonoscopy, EGD Female Surgical History: Reports: Breast Biopsy, Hysterectomy, Oophorectomy Neurological Surgical History: Reports: Lumbar Spine Musculoskeletal Surgical History: Reports: Arthroscopic Knee, Other (See Below) Other Musculoskeletal Surgeries/Procedures:: Four back surgeries Oncologic Surgical History: Reports: None Social & Family History - Family History Family Medical History: No Pertinent Family History Oncologic: Reports: Breast - Tobacco Use Tobacco Use Status *Q: Never Tobacco User Second Hand Smoke Exposure: No - Caffeine Use Caffeine Use: Reports: Coffee - Recreational Drug Use Recreational Drug Use: No ED ROS GENERAL - Review of Systems Review Of Systems: Comprehensive ROS is negative, except as noted in HPI. ED EXAM, GI/ABD - Physical Exam Exam: See Below Exam Limited By: No Limitations General Appearance: Alert, WD/WN, Mild Distress, Other (disocmfort). No: Active Emesis Ears: Hearing Grossly Normal Throat/Mouth: Normal Voice, No Airway Compromise Head: Atraumatic Neck: Non-Tender, Full Range of Motion Respiratory/Chest: No Respiratory Distress Cardiovascular: Regular Rate, Rhythm GI/Abdominal Exam: Tender, Other (mild suprapubic discomfort). No: Distended, Guarding, Rigid, Rebound (Female) Exam: Deferred Rectal (Female) Exam: Deferred Extremities: Normal Range of Motion Neurological: Alert, Oriented, Normal Cognition, Normal Gait, No Motor/Sensory Deficits Psychiatric: Flat Affect Skin Exam: Warm, Dry, Normal Color Lymphatic: No Adenopathy Course - Vital Signs Last Recorded V/S: Last Vital Signs Temp 36.1 C 12/24/20 23:56 Pulse 82 12/24/20 23:56 Resp 15 12/24/20 23:56 BP 108/54 L 12/24/20 23:56 Pulse Ox 92 L 12/24/20 23:56 - Orders/Labs/Meds Orders: Active Orders 24 hr Category Date Time Status CULTURE BLOOD [BC] Stat Lab 12/24/20 22:48 Received UA RFX DANI AND CULT IF INDIC [URIN] Stat Lab 12/25/20 01:32 Ordered Labs: Laboratory Tests 12/24/20 12/24/20 12/24/20 Range/Units 22:38 22:48 22:48 WBC 14.2 H (5.0-10.0) 10^3/uL RBC 4.67 (4.2-5.4) 10^6/uL Hgb 14.1 D (12.0-16.0) g/dL Hct 42.2 (37.0-47.0) % MCV 90.4 (80-100) fL MCH 30.2 (27.0-34.0) pg MCHC 33.4 (33.0-35.0) g/dL Plt Count 250 (150-450) 10^3/uL Neut % (Auto) 88.5 H (42.2-75.2) % Lymph % (Auto) 3.5 L (20.5-50.1) % Dolores % (Auto) 7.7 (2-8) % Eos % (Auto) 0.1 L (1.0-3.0) % Baso % (Auto) 0.2 (0.0-1.0) % PT 10.4 (9.0-12.0) SEC INR 1.1 (0.9-1.2) APTT 20.1 L (22.0-34.0) SEC Sodium (136-145) mmol/L Potassium (3.5-5.1) mmol/L Chloride (98-107) mmol/L Carbon Dioxide (21-32) mmol/L Anion Gap (7-13) mEq/L BUN (7-18) mg/dL Creatinine (0.55-1.02) mg/dL Est Cr Clr Drug Dosing mL/min Estimated GFR (MDRD) BUN/Creatinine Ratio (No establ ref range) Glucose (74-99) mg/dL Lactic Acid (0.4-2.0) mmol/L Calcium (8.5-10.1) mg/dL Total Bilirubin (0.2-1.0) mg/dL AST (15-37) U/L ALT (14-59) U/L Alkaline Phosphatase (46-116) U/L Total Protein (6.4-8.2) g/dL Albumin (3.4-5.0) g/dL Globulin Albumin/Globulin Ratio Amylase (25-115) U/L Lipase (73-393) U/L Influenza Type A RNA Negative (NEGATIVE) Influenza Type B RNA Negative (NEGATIVE) SARS-CoV-2 RNA (AL) Negative (NEGATIVE) 12/24/20 12/24/20 Range/Units 22:48 22:48 WBC (5.0-10.0) 10^3/uL RBC (4.2-5.4) 10^6/uL Hgb (12.0-16.0) g/dL Hct (37.0-47.0) % MCV (80-100) fL MCH (27.0-34.0) pg MCHC (33.0-35.0) g/dL Plt Count (150-450) 10^3/uL Neut % (Auto) (42.2-75.2) % Lymph % (Auto) (20.5-50.1) % Dolores % (Auto) (2-8) % Eos % (Auto) (1.0-3.0) % Baso % (Auto) (0.0-1.0) % PT (9.0-12.0) SEC INR (0.9-1.2) APTT (22.0-34.0) SEC Sodium 139 (136-145) mmol/L Potassium 4.2 (3.5-5.1) mmol/L Chloride 101 (98-107) mmol/L Carbon Dioxide 27 (21-32) mmol/L Anion Gap 15.2 H (7-13) mEq/L BUN 25 H (7-18) mg/dL Creatinine 1.08 H (0.55-1.02) mg/dL Est Cr Clr Drug Dosing 37.23 mL/min Estimated GFR (MDRD) 49 BUN/Creatinine Ratio 23.1 (No establ ref range) Glucose 156 H (74-99) mg/dL Lactic Acid 2.4 H* (0.4-2.0) mmol/L Calcium 9.4 (8.5-10.1) mg/dL Total Bilirubin 0.8 (0.2-1.0) mg/dL AST 19 (15-37) U/L ALT 23 (14-59) U/L Alkaline Phosphatase 110 (46-116) U/L Total Protein 6.7 (6.4-8.2) g/dL Albumin 4.2 (3.4-5.0) g/dL Globulin 2.5 Albumin/Globulin Ratio 1.7 Amylase 67 (25-115) U/L Lipase 102 (73-393) U/L Influenza Type A RNA (NEGATIVE) Influenza Type B RNA (NEGATIVE) SARS-CoV-2 RNA (AL) (NEGATIVE) - Re-Assessments/Exams Free Text/Narrative Re-Assessment/Exam: 12/25/20 02:19 results discussed with pt who is feeling much better now. likes to go home. states thinks she has pushed out all her gas. Departure - Departure Time of Disposition: 02:20 Disposition: Home, Self-Care 01 Condition: Good Clinical Impression: Abdominal pain Qualifiers: Abdominal location: lower abdomen, unspecified Qualified Code(s): R10.30 - Lower abdominal pain, unspecified - Discharge Information Forms: ED Department Discharge Additional Instructions: 1) rest 2) follow up with clinic 3) recheck if there is any change or concern Sepsis Event Note (ED) - Evaluation Sepsis Screening Result: Possible Sepsis Risk - Focused Exam Vital Signs: Vital Signs Temp Pulse Resp BP Pulse Ox 12/24/20 23:56 36.1 C 82 15 108/54 L 92 L 12/24/20 22:20 36.1 C 105 H 15 109/65 94 L - My Orders Last 24 Hours: My Active Orders 12/24/20 22:48 CULTURE BLOOD [BC] Stat 12/25/20 01:32 UA RFX DANI AND CULT IF INDIC [URIN] Stat - Assessment/Plan Last 24 Hours: My Active Orders 12/24/20 22:48 CULTURE BLOOD [BC] Stat 12/25/20 01:32 UA RFX DANI AND CULT IF INDIC [URIN] Stat
[2020-12-25 02:23] VITALS: BP 113/66; PULSE 84
== END 2020-12-25 02:32 | disposition home or self-care (01) ==
LOC: DL.ED 22:07
DX: R10.30 Lower abdominal pain, unspecified (principal); E78.00 Pure hypercholesterolemia, unspecified; Z20.822 Contact with and (suspected) exposure to COVID-19; Z88.5 Allergy status to narcotic agent; Z88.8 Allergy status to other drugs, medicaments and biological substances; Z79.899 Other long term (current) drug therapy; Z79.82 Long term (current) use of aspirin; Z91.041 Radiographic dye allergy status; K92.1 Melena; R54 Age-related physical debility; Z98.890 Other specified postprocedural states
CPT/HCPCS: 0240U; 36415; 74176; 80053; 81001; 82150; 82272; 83605; 83690; 85025; 85610; 85730; 87040; 99282; 99284

== ENCOUNTER 2020-12-31 05:51 | Day surgery (SDC) | payer MEDICARE, BC ==
[2020-12-31] MEDS ORDERED: fentaNYL 100 MCG/2 ML SDV IV ONE ×3 (05:52→07:11)
[2020-12-31] MEDS ORDERED: Midazolam 1 MG/ML 2 ML SDV IV ONE ×8 (05:52→07:24)
[2020-12-31] MEDS ORDERED: Dextrose 5%-0.45% NaCl 1,000 ML IV SCH (06:00)
[2020-12-31] MEDS ORDERED: Midazolam 1 MG/ML 2 ML SDV ONE (06:16)
[2020-12-31] MEDS ORDERED: fentaNYL 100 MCG/2 ML SDV ONE (06:17)
--- NOTE | 2020-12-31 08:25 | OR ---
DATE: 12/31/2020 PROCEDURE: Total colonoscopy. INSTRUMENT USED: PCF-H190DL Olympus video colonoscope. PREMEDICATIONS: Fentanyl 100 mcg intravenous, Versed 4 mg intravenous, nasal O2 cannula. The procedure was done under pulse oximetry, BP recording, and cardiac rehab nurse. INDICATION: The patient with rectal bleeding and Hemoccult-positive stools. Colonoscopic examination is done for detection of any polypoid lesions and removal, endoscopic hemostasis therapy if needed. DESCRIPTION OF PROCEDURE: Initial rectal exam was unremarkable. Rigid anoscopy was normal. The colonoscope was passed with ease. Scattered diverticula were noted in the distal left colon along with some deformity. The scope was passed with ease up to the ileocecal area. The colon was found to be redundant. Photographs were taken of the normal-appearing cecum, identified by landmarks of appendiceal orifice and double-bulged ileocecal folds. No bleeding was noted from any of the visualized areas at the commencement of the examination. The bowel preparation was found to be adequate, [place] scale 2 in all the regions, total score 6. No stricture. No vascular ectasia. No large isolated ulcerations seen. No evidence of diffuse inflammatory bowel disease in the form of friability, contact bleeding, or ulcerations. No polyp or tumor mass identified. Probing the proximal sides of folds and flexures using adequate distention and clearing up the stool material, withdrawal of the scope was made, cecum to rectum time over 6 minutes. No bleeding was noted from any of the visualized areas at the completion of examination. IMPRESSION: Diverticulosis. The patient tolerated the procedure well. [facility] /[id number]
[2020-12-31 09:44] VITALS: BP 145/98; PULSE 82
== END 2020-12-31 09:45 | disposition home or self-care (01) ==
LOC: DL.ENDO 05:51
PROVIDERS: ATTEND Internal Medicine Gastroenterology
DX: K57.31 Diverticulosis of large intestine without perforation or abscess with bleeding (principal); E78.5 Hyperlipidemia, unspecified; M81.0 Age-related osteoporosis without current pathological fracture; Z88.5 Allergy status to narcotic agent; Z98.890 Other specified postprocedural states
CPT/HCPCS: 45378; J2250; J3010; J7042

== ENCOUNTER 2021-12-25 13:19 | Emergency (ER) | payer MEDICARE, BC ==
[2021-12-25] MEDS ORDERED: Ondansetron 4 MG/2 ML SDV IVPUSH ONE (13:49)
[2021-12-25 13:56] VITALS: BP 158/85; PULSE 82
[2021-12-25 14:05] LABS: ANION GAP 12.3 mEq/L (7-13); CHLORIDE,CL 101 mmol/L (98-107); SODIUM,NA 138 mmol/L (136-145)
[2021-12-25 14:09] LABS: PTT,PARTIAL THROMBOPLSTIN TIME 20.7 SEC (22.0-34.0)
[2021-12-25 14:54] LABS: CORONAVIRUS COVID-19 NAA NEGATIVE (NEGATIVE)
== END 2021-12-25 15:15 ==
LOC: DL.ED 13:19
DX: I63.9 Cerebral infarction, unspecified (principal); E78.00 Pure hypercholesterolemia, unspecified; J44.9 Chronic obstructive pulmonary disease, unspecified; Z91.041 Radiographic dye allergy status; Z88.5 Allergy status to narcotic agent; Z79.899 Other long term (current) drug therapy; Z20.822 Contact with and (suspected) exposure to COVID-19
CPT/HCPCS: 0240U; 36415; 70450; 80053; 80307; 82947; 83605; 83735; 83880; 84484; 85025; 85379; 85610; 85730; 86140; 87040; 93010; 96374; 99283; 99285; J2405

== ENCOUNTER 2022-11-16 09:54 | Day surgery (SDC) | payer MEDICARE, BC ==
[~2022-11-16 09:54] MED LIST: Acetaminophen 325 MG Tab PO PRN; Acetaminophen/Codeine 300-30 MG Tab PO PRN; Apraclonidine 0.5% Ophth Soln 5 ML Bot EYELF ONE; Balanced Salt Solution Ophth Irrig 500 ML Bottle IOCULAR ONE; Cataract Ophth Solution EYELF ONE; Chondroitin Sulfate/Hyaluronate Sodium Ophth Inj 0.75 ML Syringe EYELF ONE; Dexamethasone/Neomycin/Polymyxin B Ophth Oint 3.5 GM Tube EYELF ONE; Diclofenac Sodium 0.1% Ophth Soln 5 ML Bottle EYELF ONE; Lidocaine 1% 30 ML SDV ONE; Moxifloxacin 0.5% Ophth Soln 3 ML Bottle EYELF ONE; Ondansetron 4 MG/2 ML SDV IVPUSH PRN; Phenylephrine 10% Ophth Soln 5 ML Bot EYEBOTH PRN; Povidone-Iodine 5% Sterile Ophth Soln 30 ML Bottle EYELF ONE; Proparacaine 0.5% Ophth Soln 15 ML Bottle EYELF ONE; Sodium Chloride 0.9% 10 ML Syringe FLUSH PRN; Timolol Maleate 0.5% Ophth Soln 5 ML Bottle EYELF ONE; Tropicamide 1% Ophth Soln 15 ML Bottle EYELF ONE; Vancomycin 500 MG SDV EYELF ONE
[2022-11-16] MEDS ORDERED: Midazolam 1 MG/ML 2 ML SDV IV ONE (09:55)
[2022-11-16] MEDS ORDERED: Dexamethasone 4 MG/ML SDV IV ONE (09:55)
[2022-11-16] MEDS ORDERED: Sodium Chloride 0.9% 10 ML Syringe IV ONE (09:55)
[2022-11-16] MEDS ORDERED: Proparacaine 0.5% Ophth Soln 15 ML Bottle EYELF ONE (10:50)
[2022-11-16] MEDS ORDERED: Povidone-Iodine 5% Sterile Ophth Soln 30 ML Bottle EYELF ONE (10:51)
[2022-11-16] MEDS ORDERED: Lidocaine 1% 30 ML SDV ONE (10:56)
[2022-11-16] MEDS ORDERED: Balanced Salt Solution Ophth Irrig 500 ML Bottle IOCULAR ONE (10:58)
[2022-11-16] MEDS ORDERED: Chondroitin Sulfate/Hyaluronate Sodium Ophth Inj 0.75 ML Syringe EYELF ONE (11:00)
[2022-11-16] MEDS ORDERED: Vancomycin 500 MG SDV EYELF ONE (11:03)
[2022-11-16] MEDS ORDERED: Apraclonidine 0.5% Ophth Soln 5 ML Bot EYELF ONE (11:05)
[2022-11-16] MEDS ORDERED: Diclofenac Sodium 0.1% Ophth Soln 5 ML Bottle EYELF ONE (11:06)
[2022-11-16] MEDS ORDERED: Dexamethasone/Neomycin/Polymyxin B Ophth Oint 3.5 GM Tube EYELF ONE (11:06)
[2022-11-16 12:36] VITALS: BP 146/90; PULSE 85
== END 2022-11-16 12:20 | disposition home or self-care (01) ==
LOC: DL.SDS 09:54
PROVIDERS: ATTEND Ophthalmology
DX: H25.812 Combined forms of age-related cataract, left eye (principal); M19.90 Unspecified osteoarthritis, unspecified site; F32.A Depression, unspecified; F41.1 Generalized anxiety disorder; E78.5 Hyperlipidemia, unspecified; G43.909 Migraine, unspecified, not intractable, without status migrainosus; F51.04 Psychophysiologic insomnia; Z98.890 Other specified postprocedural states; Z79.899 Other long term (current) drug therapy; Z88.5 Allergy status to narcotic agent; Z91.041 Radiographic dye allergy status; Z90.710 Acquired absence of both cervix and uterus
CPT/HCPCS: 00142; A9270-GY; C1780; J1100; J2250; J3370; J3490

== ENCOUNTER → 2022-11-30 | Day surgery (SDC) | payer MEDICARE, BC ==
[~2022-11-30] MED LIST changes: -Apraclonidine 0.5% Ophth Soln 5 ML Bot EYELF ONE; +Apraclonidine 0.5% Ophth Soln 5 ML Bot EYERT ONE; -Cataract Ophth Solution EYELF ONE; +Cataract Ophth Solution EYERT ONE; -Chondroitin Sulfate/Hyaluronate Sodium Ophth Inj 0.75 ML Syringe EYELF ONE; +Chondroitin Sulfate/Hyaluronate Sodium Ophth Inj 0.75 ML Syringe EYERT ONE; -Dexamethasone/Neomycin/Polymyxin B Ophth Oint 3.5 GM Tube EYELF ONE; +Dexamethasone/Neomycin/Polymyxin B Ophth Oint 3.5 GM Tube EYERT ONE; -Diclofenac Sodium 0.1% Ophth Soln 5 ML Bottle EYELF ONE; +Diclofenac Sodium 0.1% Ophth Soln 5 ML Bottle EYERT ONE; -Moxifloxacin 0.5% Ophth Soln 3 ML Bottle EYELF ONE; +Moxifloxacin 0.5% Ophth Soln 3 ML Bottle EYERT ONE; -Phenylephrine 10% Ophth Soln 5 ML Bot EYEBOTH PRN; +Phenylephrine 10% Ophth Soln 5 ML Bot EYERT PRN; -Povidone-Iodine 5% Sterile Ophth Soln 30 ML Bottle EYELF ONE; +Povidone-Iodine 5% Sterile Ophth Soln 30 ML Bottle EYERT ONE; -Proparacaine 0.5% Ophth Soln 15 ML Bottle EYELF ONE; +Proparacaine 0.5% Ophth Soln 15 ML Bottle EYERT ONE; -Timolol Maleate 0.5% Ophth Soln 5 ML Bottle EYELF ONE; +Timolol Maleate 0.5% Ophth Soln 5 ML Bottle EYERT ONE; -Tropicamide 1% Ophth Soln 15 ML Bottle EYELF ONE; +Tropicamide 1% Ophth Soln 15 ML Bottle EYERT ONE; -Vancomycin 500 MG SDV EYELF ONE; +Vancomycin 500 MG SDV EYERT ONE
[2022-11-30 07:34] VITALS: BP 135/71; PULSE 79
== END ==
LOC: DL.SDS 07:07
PROVIDERS: ATTEND Ophthalmology
DX: H26.9 Unspecified cataract (principal); Z53.09 Procedure and treatment not carried out because of other contraindication; Z91.041 Radiographic dye allergy status; Z88.5 Allergy status to narcotic agent; Z88.6 Allergy status to analgesic agent
CPT/HCPCS: A9270; J3370; J3490

== ENCOUNTER 2022-12-14 06:49 | Day surgery (SDC) | payer MEDICARE, BC ==
[~2022-12-14 06:49] MED LIST changes: -Acetaminophen 325 MG Tab PO PRN; -Acetaminophen/Codeine 300-30 MG Tab PO PRN; -Cataract Ophth Solution EYERT ONE; -Moxifloxacin 0.5% Ophth Soln 3 ML Bottle EYERT ONE; -Ondansetron 4 MG/2 ML SDV IVPUSH PRN; -Phenylephrine 10% Ophth Soln 5 ML Bot EYERT PRN; -Sodium Chloride 0.9% 10 ML Syringe FLUSH PRN; -Timolol Maleate 0.5% Ophth Soln 5 ML Bottle EYERT ONE; -Tropicamide 1% Ophth Soln 15 ML Bottle EYERT ONE
[2022-12-14] MEDS ORDERED: Sodium Chloride 0.9% 10 ML Syringe IV ONE (06:50)
[2022-12-14] MEDS ORDERED: Dexamethasone 4 MG/ML SDV IV ONE (06:50)
[2022-12-14] MEDS ORDERED: Midazolam 1 MG/ML 2 ML SDV IV ONE (06:50)
[2022-12-14] MEDS ORDERED: Sodium Chloride 0.9% 10 ML Syringe FLUSH PRN (07:00)
[2022-12-14] MEDS ORDERED: Proparacaine 0.5% Ophth Soln 15 ML Bottle EYERT ONE ×2 (07:30→09:23)
[2022-12-14] MEDS ORDERED: Acetaminophen 325 MG Tab PO PRN (07:30)
[2022-12-14] MEDS ORDERED: Cataract Ophth Solution EYERT ONE (07:30)
[2022-12-14] MEDS ORDERED: Moxifloxacin 0.5% Ophth Soln 3 ML Bottle EYERT ONE (07:30)
[2022-12-14] MEDS ORDERED: Acetaminophen/Codeine 300-30 MG Tab PO PRN (07:30)
[2022-12-14] MEDS ORDERED: Tropicamide 1% Ophth Soln 15 ML Bottle EYERT ONE (07:30)
[2022-12-14] MEDS ORDERED: Timolol Maleate 0.5% Ophth Soln 5 ML Bottle EYERT ONE (07:30)
[2022-12-14] MEDS ORDERED: Povidone-Iodine 5% Sterile Ophth Soln 30 ML Bottle EYERT ONE ×2 (07:30→09:23)
[2022-12-14] MEDS ORDERED: Phenylephrine 10% Ophth Soln 5 ML Bot EYERT PRN (07:30)
[2022-12-14] MEDS ORDERED: Ondansetron 4 MG/2 ML SDV IVPUSH PRN (07:30)
[2022-12-14] MEDS ORDERED: Balanced Salt Solution Ophth Irrig 500 ML Bottle IOCULAR ONE (09:23)
[2022-12-14] MEDS ORDERED: Dexamethasone/Neomycin/Polymyxin B Ophth Oint 3.5 GM Tube EYERT ONE (09:23)
[2022-12-14] MEDS ORDERED: Apraclonidine 0.5% Ophth Soln 5 ML Bot EYERT ONE (09:23)
[2022-12-14] MEDS ORDERED: Diclofenac Sodium 0.1% Ophth Soln 5 ML Bottle EYERT ONE (09:23)
[2022-12-14] MEDS ORDERED: Lidocaine 1% 30 ML SDV ONE (09:23)
[2022-12-14] MEDS ORDERED: Chondroitin Sulfate/Hyaluronate Sodium Ophth Inj 0.75 ML Syringe EYERT ONE (09:24)
[2022-12-14] MEDS ORDERED: Vancomycin 500 MG SDV EYERT ONE (09:24)
[2022-12-14 10:25] VITALS: BP 130/70; PULSE 78
== END 2022-12-14 10:40 | disposition home or self-care (01) ==
LOC: DL.SDS 06:49
PROVIDERS: ATTEND Ophthalmology
DX: H25.811 Combined forms of age-related cataract, right eye (principal); M19.90 Unspecified osteoarthritis, unspecified site; G47.00 Insomnia, unspecified; F32.A Depression, unspecified; F41.1 Generalized anxiety disorder; E78.5 Hyperlipidemia, unspecified; G43.909 Migraine, unspecified, not intractable, without status migrainosus; M81.0 Age-related osteoporosis without current pathological fracture; F41.9 Anxiety disorder, unspecified; Z90.49 Acquired absence of other specified parts of digestive tract; Z98.890 Other specified postprocedural states; Z90.710 Acquired absence of both cervix and uterus; Z87.891 Personal history of nicotine dependence; Z79.899 Other long term (current) drug therapy; Z91.041 Radiographic dye allergy status; Z88.5 Allergy status to narcotic agent
CPT/HCPCS: 00142; A9270-GY; J1100; J2250; J3370; J3490

== ENCOUNTER 2023-01-30 18:57 | Emergency (ER) | payer MEDICARE, BC ==
[2023-01-30] MEDS ORDERED: Sodium Chloride 0.9% 10 ML Syringe FLUSH PRN (19:15)
[2023-01-30 19:31] VITALS: BP 148/83; PULSE 94
[2023-01-30 19:39] LABS: PTT,PARTIAL THROMBOPLSTIN TIME 21.9 SEC (22.0-34.0)
[2023-01-30 19:48] LABS: ANION GAP 11.9 mEq/L (7-13); CHLORIDE,CL 103 mmol/L (98-107); SODIUM,NA 142 mmol/L (136-145)
[2023-01-30 19:49] LABS: ESTIMATED GFR 76 mL/min (>=60)
[2023-01-30 20:23] LABS: AMPHETAMINES,URINE NEGATIVE (NEGATIVE); BARBITURATES,URINE NEGATIVE (NEGATIVE); BENZODIAZEPINE,URINE NEGATIVE (NEGATIVE); MDMA (ECSTASY), URINE NEGATIVE (NEGATIVE); METHADONE,URINE NEGATIVE (NEGATIVE); METHAMPHETAMINES,URINE NEGATIVE (NEGATIVE); OPIATES,URINE NEGATIVE (NEGATIVE); OXYCODONE,URINE NEGATIVE (NEGATIVE); PHENCYCLIDINE,URINE NEGATIVE (NEGATIVE); TCA,URINE NEGATIVE (NEGATIVE)
[2023-01-30] MEDS ORDERED: Nitrofurantoin Monohydrate/Macrocrystalline 100 MG Cap PO ONE (20:37)
== END 2023-01-30 21:06 | disposition home or self-care (01) ==
LOC: DL.ED 18:57
DX: N39.0 Urinary tract infection, site not specified (principal); E78.00 Pure hypercholesterolemia, unspecified; J44.9 Chronic obstructive pulmonary disease, unspecified; Z88.5 Allergy status to narcotic agent; Z91.041 Radiographic dye allergy status; Z86.73 Personal history of transient ischemic attack (TIA), and cerebral infarction without residual deficits; Z79.899 Other long term (current) drug therapy; Z86.16 Personal history of COVID-19; Z79.02 Long term (current) use of antithrombotics/antiplatelets
CPT/HCPCS: 36415; 70450; 80053; 80305-QW; 80307; 81001; 82140; 82947; 83605; 83735; 84443; 84484; 85025; 85610; 85730; 86140; 87040; 87086; 93005; 93010; 99284; 99285; A9270-GY; J3490

== ENCOUNTER 2025-10-19 11:51 | Emergency (ER) | payer MEDICARE, BC ==
[2025-10-19 12:18] LABS: BASOPHILS PERCENT AUTO 0.2 % (0.0-1.0); EOSINOPHILS PERCENT AUTO 1.2 % (1.0-3.0); LYMPHOCYTES PERCENT AUTO 12.3 % (20.5-50.1); MONOCYTES PERCENT AUTO 6.3 % (2-8); NEUTROPHILS PERCENT AUTO 80.0 % (42.2-75.2); PLATELET COUNT,PLT 252 10^3/uL (150-450); RED BLOOD CELL COUNT 4.75 10^6/uL (4.2-5.4); WHITE BLOOD CELL COUNT,WBC 11.4 10^3/uL (5.0-10.0)
[2025-10-19] MEDS: Phenazopyridine 95 MG Tab PO ONE (12:34)
[2025-10-19] MEDS: Ketorolac 30 MG/ML SDV IVPUSH ONE (12:34)
[2025-10-19 12:40] LABS: A/G RATIO 1.3; ALANINE AMINOTRANSFERASE,ALT 22.0 U/L (14-59); ASPARTATE AMNIOTRANSFERASE,AST 20.0 U/L (15-37); BILIRUBIN TOTAL 0.6 mg/dL (0.2-1.0); BLOOD UREA NITROGEN,BUN 8.0 mg/dL (7-18); CARBON DIOXIDE,CO2 30.0 mmol/L (21-32); CHLORIDE,CL 104.0 mmol/L (98-107); CREATININE 1.04 mg/dL (0.55-1.02); EST CRCL DRUG DOSING (CG) 35.69 mL/min; GLUCOSE RANDOM 112.0 mg/dL (70-99); POTASSIUM,K 4.1 mmol/L (3.5-5.1); PROTEIN TOTAL,TP 7.2 g/dL (6.4-8.2); SODIUM,NA 142.0 mmol/L (136-145)
[2025-10-19 12:41] LABS: ESTIMATED GFR 54.0 mL/min (>=60)
[2025-10-19 12:45] LABS: LACTIC ACID 1.8 mmol/L (0.4-2.0)
[2025-10-19 13:22] LABS: APPEARANCE,URINE SLIGHTLY CLOUDY (CLEAR); GLUCOSE,URINE NEGATIVE (NEGATIVE); OCCULT BLOOD,URINE MODERATE (NEGATIVE)
[2025-10-19 13:40] LABS: EPITHELIAL CELLS,URINE FEW /HPF (NOT SEEN)
[2025-10-19] MEDS: Take Home: Phenazopyridine 95 MG Tab, 4 Tab Pack PO ONE (14:31)
[2025-10-19 14:34] VITALS: BP 146/95; PULSE 77
== END 2025-10-19 14:26 | disposition home or self-care (01) ==
LOC: DL.ED 11:51
DX: N39.0 Urinary tract infection, site not specified (principal); E78.00 Pure hypercholesterolemia, unspecified; J44.9 Chronic obstructive pulmonary disease, unspecified; K21.9 Gastro-esophageal reflux disease without esophagitis; Z86.73 Personal history of transient ischemic attack (TIA), and cerebral infarction without residual deficits; Z88.5 Allergy status to narcotic agent; Z88.8 Allergy status to other drugs, medicaments and biological substances; Z91.041 Radiographic dye allergy status; Z79.899 Other long term (current) drug therapy
CPT/HCPCS: 36415; 80053; 81001; 83605; 85025; 87086; 96360; 96374; 96375; 99283; A9270; J0696; J7030; 87088; 87186; J1885